=== PATIENT | female | born 1930 | race Caucasian/White ===

== ENCOUNTER 2017-10-11 10:01 | Inpatient (IN) | payer OTHER ==
[~2017-10-11] VITALS: Ht 160 cm; Wt 68.0 kg
[~2017-10-11 10:01] MED LIST: ASPIR 8181 MG PO; AZITHROMYCIN 2250 MG PO; LEVOTHYROXIN0.075 MG PO; MAXZIDE-25 MG1 EACH PO; NORVASC5 MG PO; PERCOCET PO; TESSALON PERLE100 MG PO; TRAMADOL 50 MG50 MG PO; TRAZODONE HCL100 MG PO; ZOCOR20 MG PO
[2017-10-11 10:07] VITALS: BP 146/89
[2017-10-11 10:48] LABS: MCV 68.3 fL (80.0-100.0); WBC 8.4 thou/uL (4.0-11.0)
[2017-10-11 10:50] LABS: HEMATOCRIT 40.6 % (37.0-47.0); HEMOGLOBIN 13.1 gm/dL (12.0-15.0); MCHC 32.2 g/dL (28.0-37.0); NUCLEATED RBCS 0 /100WBC; PLATELET COUNT* 271 thou/uL (150-400); RBC 5.94 mil/uL (4.20-5.00); RDW-CV 18.2 % (10.5-14.5)
[2017-10-11 10:56] LABS: APTT 22.5 Seconds (25.0-31.3); INR 1.1; PROTIME 10.7 Seconds (9.20-11.50)
[2017-10-11 11:04] LABS: ALBUMIN 3.7 g/dL (3.4-5.0); POTASSIUM 4.5 mmol/L (3.5-5.1); TOTAL BILIRUBIN 1.1 mg/dL (<0.1-1.0); TOTAL PROTEIN 7.1 g/dL (6.4-8.2); TROPONIN-I LEVEL 0.14 ng/mL (<0.06)
[2017-10-11] MEDS ORDERED: LASIX 40 MG TAB40 M2 PO (11:07)
[2017-10-11 11:12] LABS: ABSOLUTE EOSINOPHILS 0.2 thou/uL (0.0-0.7); ABSOLUTE MONOCYTES 0.7 thou/uL (0.0-1.2); ABSOLUTE NEUTROPHILS 6.6 thou/uL (1.6-8.1)
[2017-10-11 11:13] LABS: HYPOCHROMASIA 2+; MICROCYTES 2+; OVALOCYTES 1+; POLYCHROMASIA 1+; SCHISTOCYTES Occasional; TARGET CELLS Occasional
[2017-10-11 11:14] LABS: ANISOCYTOSIS 2+; PLATELET ESTIMATE ADEQUATE; POIKILOCYTOSIS 2+
[2017-10-11 11:23] LABS: BE 1.5 mmol/L (-2 to +3); HCO3 24.2 mmol/L (22.0-26.0); PCO2 32.6 mmHg (35.0-45.0); PO2 99.5 mmHg (75.0-100.0); pH 7.489 (7.340-7.450)
[2017-10-11 13:30] VITALS: BP 123/80
[2017-10-11 13:38] VITALS: BP 126/72
[2017-10-11] MEDS ORDERED: NAMENDA 10 MG T10 MG PO (14:34)
[2017-10-11 16:46] VITALS: BP 121/75
--- NOTE | 2017-10-11 19:45 | 2DMMODE ---
[place] [address] 2 D/M-MODE ECHOCARDIOGRAM Name: WALLACE PANDEY Jesse Room: [address] IN [facility]#: [id number] Admission: 10/11/17 Attend Phys: Michael Harrison Discharge: Date of : 32 Date of Service: 10/11/17 1944 Report #: [id number] THIS REPORT FOR: //name// APPROVED REPORT Study performed: 10/11/2017 16:55:29 EXAM: Comprehensive 2D, Doppler, and color-flow Echocardiogram Patient Location: In-Patient Room #: 229 Status: routine BSA: 1.81 HR: 105 bpm BP: 126/72 mmHg Rhythm: NSR Other Information Study Quality: Good Indications Congestive Heart Failure Dyspnea 2D Dimensions LVEF(%): 32.97 (>50%) IVSd: 20.24 (7-11mm) LVOT Diam: 19.34 (18-24mm) LVDd: 35.44 mm PWd: 18.11 (7-11mm) Ascending Ao: 34.50 (22-36mm) LVDs: 30.05 (25-40mm) Aortic Root: 29.89 mm Trimble's LVEF: 32.97 % Volumes Left Atrial Volume (Systole) LA ESV Index: 44.70 mL/m2 Aortic Valve AoV Peak Olaf.: 1.23 m/s AO Peak Gr.: 6.10 mmHg LVOT Max P.71 mmHg AO Mean Gr.: 3.52 mmHg LVOT Mean P.22 mmHg LVOT Max V: 0.82 m/s AO V2 VTI: 19.18 cm LVOT Mean V: 0.50 m/s RICKY (VTI): 1.81 cm2 LVOT V1 VTI: 11.83 [place] [address] 2 D/M-MODE ECHOCARDIOGRAM Name: WALLACE PANDEY Jesse Room: [address] IN .R.#: [id number] Admission: 10/11/17 Attend Phys: Michael Harrison Discharge: Date of : 32 Date of Service: 10/11/17 1944 Report #: [id number] Medial E' Olaf.: 0.05 m/s Lateral E' Olaf.: 0.06 m/s Pulmonary Valve PV Peak Olaf.: 0.89 m/s PV Peak Gr.: 3.16 mmHg Tricuspid Valve TR Peak Gr.: 39.67 mmHg RVSP: 44.00 mmHg Left Ventricle The left ventricle is normal size. There is normal LV segmental wall motion. Severe concentric left ventricular hypertrophy. Left ventricular systolic function is moderately decreased. LVEF is 35-40%. Transmitral Doppler flow pattern suggests restrictive physiology. Right Ventricle Right ventricle is mildly dilated. The right ventricular systolic function is normal. Atria Left atrium is moderately dilated. Right atrium is mildly dilated. Aortic Valve Mild aortic valve sclerosis. Mild aortic regurgitation. No hemodynamically significant valvular aortic stenosis. Mitral Valve There is mitral annular calcification. Moderate mitral regurgitation. No evidence of mitral valve stenosis. Tricuspid Valve The tricuspid valve is normal in structure. Moderate tricuspid regurgitation. The RVSP is 50-55 mmHg. Pulmonic Valve The pulmonary valve is normal in structure. Mild pulmonic regurgitation. Great Vessels The aortic root is normal in size. IVC is normal in size and collapses with >50% inspiration Pericardium Mild circumferential pericardial effusion. [place] [address] 2 D/M-MODE ECHOCARDIOGRAM Name: NATHAN PANDEYSHIN Molina Room: [address] IN .R.#: [id number] Admission: 10/11/17 Attend Phys: Michael Harrison Discharge: Date of : 32 Date of Service: 10/11/17 1944 Report #: [id number] pericardial tamponade. Left pleural effusion. <Conclusion> The left ventricle is normal size. Severe concentric left ventricular hypertrophy. Left ventricular systolic function is moderately decreased. LVEF is 35-40%. Transmitral Doppler flow pattern suggests restrictive physiology. Mild aortic valve sclerosis. Mild aortic regurgitation. The left ventricle is normal size. Severe concentric left ventricular hypertrophy. Left ventricular systolic function is moderately decreased. LVEF is 35-40%. Transmitral Doppler flow pattern suggests restrictive physiology. Left atrium is moderately dilated. Right atrium is mildly dilated. Right ventricle is mildly dilated. Mild aortic regurgitation. Moderate mitral regurgitation. Moderate tricuspid regurgitation. The RVSP is 50-55 mmHg. Mild pulmonic regurgitation. Mild circumferential pericardial effusion. No echo indications of pericardial tamponade. Consider infiltrative cardiomyopathy. <ELECTRONICALLY SIGNED> By: Tim Sy MD, FACC 10/11/171944 44 44 Tim Sy MD, FACC /INF
[2017-10-11 20:00] VITALS: BP 112/65
--- NOTE | 2017-10-11 20:19 | EKG ---
[place] [address] ELECTROCARDIOGRAM REPORT Name: LULÚNAHUMWALLACE K Room: [address] ADM IN .R.#: [id number] Admission: 10/11/17 Attend Phys: Michael Ferguson, Discharge: Date of : 32 Report #: [id number] THIS REPORT FOR: //name// [facility] ED Test Date: 2017-10-11 Test Time: 10:11:31 Pat Name: WALLACE PANDEY Department: Room: [facility] Gender: F Teaching Dietitian: CARLA : 1930 Requested By: Kendall Dubois Order Number: [id number] MD: Tim Sy Measurements Intervals Independence Rate: 104 P: 57 NC: 199 QRS: 21 QRSD: 101 T: -43 QT: 346 QTc: 455 Interpretive Statements Sinus tachycardia Low voltage, extremity leads Anteroseptal infarct, old Compared to ECG 10/27/2016 15:15:09 Low QRS voltage now present Sinus rhythm no longer present Prolonged QT interval no longer present Myocardial infarct finding still present Electronically Signed On 10-11-2017 20:19:37 CATALOGUE ILLUSTRATOR by Tim Sy [email or web address] <ELECTRONICALLY SIGNED> By: Tim Sy MD, FACC 10/11/172018 1011 1011 Tmi Sy MD, FAC /EPI
[2017-10-12] VITALS: BP 133/73
[2017-10-12 04:00] VITALS: BP 132/70
[2017-10-12 05:44] LABS: HEMATOCRIT 38.1 % (37.0-47.0); HEMOGLOBIN 12.2 gm/dL (12.0-15.0); MCH 21.7 pg (26.0-34.0); MCV 67.7 fL (80.0-100.0); MPV 8.8 fl. (7.2-11.1); RBC 5.63 mil/uL (4.20-5.00); WBC 5.4 thou/uL (4.0-11.0)
[2017-10-12 06:03] LABS: ALBUMIN 3.2 g/dL (3.4-5.0); CALCIUM 8.7 mg/dL (8.5-10.1); CREATININE 1.1 mg/dL (0.6-1.3); MAGNESIUM 1.8 mg/dL (1.8-2.4); TOTAL BILIRUBIN 0.9 mg/dL (<0.1-1.0); TOTAL PROTEIN 6.1 g/dL (6.4-8.2); TROPONIN-I LEVEL 0.16 ng/mL (<0.06)
[2017-10-12 06:06] LABS: POTASSIUM 2.9 mmol/L (3.5-5.1)
[2017-10-12 08:00] VITALS: BP 116/69
[2017-10-12 11:41] VITALS: BP 121/70
--- NOTE | 2017-10-12 12:16 | CON ---
[address] [address] CONSULTATION Name: KATHERINWALLACE K Room: [address] IN .R.#: [id number] Admission: 10/11/17 Attend Phys: Michael Ferguson, Discharge: Date of : 31 Report #: [id number] THIS REPORT FOR: //name// CC: Dr. Megan Guzman DATE OF SERVICE: 10/11/2017 INDICATION: Heart failure. HISTORY OF PRESENT ILLNESS: The patient is a very pleasant 87-year-old white female who was admitted to the hospital with increasing swelling and shortness of breath. She is accompanied by her who fills in most of the history. The patient is not having chest pain. She has been having progressive dyspnea and orthopnea over the last month, swelling over the last 2 months. On admission to the hospital, she was felt to be in heart failure and placed in the hospital for further evaluation and treatment. An echocardiogram has been ordered and is pending. Her chest x-ray shows evidence of pulmonary vascular congestion. Her BNP was 10,019. Troponins were elevated at 0.14, but appeared to be chronically elevated. She is not having any symptoms to suggest acute coronary syndrome. PAST MEDICAL HISTORY: 1. Hypertension. 2. Hyperlipidemia. 3. Dementia. PAST SURGICAL HISTORY: T and A, hysterectomy. FAMILY HISTORY: Noncontributory. SOCIAL HISTORY: The patient has been over 60 years. Her is with her today. She does not smoke. She does not drink. Lifelong nonsmoker and nondrinker. ALLERGIES: None. HOME MEDICATIONS: Amlodipine 5 mg daily, furosemide 40 mg daily, levothyroxine 0.075 mg daily, simvastatin 20 mg at bedtime, trazodone 100 mg daily. REVIEW OF SYSTEMS: A 14-point review of systems was positive for dyspnea and orthopnea, lower extremity edema, hypothyroidism, arthritis of the arm and shoulder. She wears glasses without acute visual changes and she has decreased hearing. Otherwise, 14-point review of [place] [address] CONSULTATION Name: WALLACE PANDEY Room: [address]#: [id number] Admission: 10/11/17 Attend Phys: Michael Ferguson, Discharge: Date of : 31 Report #: [id number] PHYSICAL EXAMINATION: GENERAL: This is a very pleasant elderly female, who is in no distress. Mood and affect appropriate. HEENT: The patient is wearing a hearing aid and glasses. Extraocular muscles appear to be intact. Mucous membranes are moist. NECK: Shows no jugular venous distention. I do not appreciate bruit. CHEST: Reveals diminished breath sounds in the bases without rales. CARDIAC: Reveals a regular rhythm without gallop or murmur. ABDOMEN: Reveals normal bowel sounds. The abdomen is soft, nontender. EXTREMITIES: Shows 1+ pedal and ankle edema bilaterally. IMPRESSION AND RECOMMENDATIONS: 1. Acute on chronic diastolic heart failure. An echocardiogram has been ordered and is pending. At this time, she is responding nicely to a single bolus of IV Lasix. Would continue IV Lasix while in hospital and she has recently started furosemide at home, in fact may not have had a dose yet. I believe she will require only a small dose of Lasix at home. Follow I's and O's and daily labs. Consider outpatient stress testing. 2. Hypertension. Blood pressure adequately controlled especially with recent diuresis. We will follow clinically. 3. Hyperlipidemia. Continue simvastatin at current dose. <ELECTRONICALLY SIGNED> By: Tim Sy MD, FACC 10/12/17 1216 1816 [id number] Sy MD, FACC /nt
[2017-10-12 15:23] VITALS: BP 136/61
[2017-10-12 20:30] VITALS: BP 109/62
[2017-10-13] VITALS (7 sets, daily range): BP systolic 111–126; BP diastolic 66–82
[2017-10-13 05:57] LABS: HEMATOCRIT 37.9 % (37.0-47.0); MCH 21.5 pg (26.0-34.0); MCHC 31.6 g/dL (28.0-37.0); MCV 68.1 fL (80.0-100.0); MPV 8.9 fl. (7.2-11.1); RBC 5.57 mil/uL (4.20-5.00); RDW-CV 18.6 % (10.5-14.5); WBC 10.9 thou/uL (4.0-11.0)
[2017-10-13 06:14] LABS: CALCIUM 8.3 mg/dL (8.5-10.1); CREATININE 1.1 mg/dL (0.6-1.3); MAGNESIUM 2.1 mg/dL (1.8-2.4); POTASSIUM 3.3 mmol/L (3.5-5.1); TROPONIN-I LEVEL 0.21 ng/mL (<0.06)
[2017-10-14 04:00] VITALS: BP 122/67
[2017-10-14 05:30] LABS: CALCIUM 8.3 mg/dL (8.5-10.1); CREATININE 1.3 mg/dL (0.6-1.3); POTASSIUM 3.4 mmol/L (3.5-5.1)
[2017-10-14 08:00] VITALS: BP 122/69
[2017-10-14 12:13] VITALS: BP 106/58
[2017-10-14 14:45] LABS: BF RBC 1077 /mm3; TOTAL CELL COUNT 223 /mm3
[2017-10-14 14:48] LABS: CLARITY SL HAZY; COLOR YELLOW; TOTAL VOLUME 1210 ml
[2017-10-14 14:50] LABS: BF LYMPHOCYTES 18 %; BF MONOCYTES 5 %; BF POLYS 77 %; BF TISSUE 26 /100 WBC
[2017-10-14 14:52] LABS: SOURCE THORACENTESIS
[2017-10-14 17:22] VITALS: BP 117/70
[2017-10-14 20:20] VITALS: BP 109/54
[2017-10-15 01:08] VITALS: BP 111/68
[2017-10-15 04:51] VITALS: BP 114/66
[2017-10-15 05:24] LABS: HEMATOCRIT 39.3 % (37.0-47.0); HEMOGLOBIN 12.5 gm/dL (12.0-15.0); MCH 21.7 pg (26.0-34.0); MCHC 31.9 g/dL (28.0-37.0); MCV 68.1 fL (80.0-100.0); MPV 8.7 fl. (7.2-11.1); RBC 5.77 mil/uL (4.20-5.00); WBC 7.6 thou/uL (4.0-11.0)
[2017-10-15 06:03] LABS: CREATININE 1.2 mg/dL (0.6-1.3); MAGNESIUM 1.9 mg/dL (1.8-2.4); TOTAL PROTEIN 5.4 g/dL (6.4-8.2)
[2017-10-15 07:30] VITALS: BP 130/75
[2017-10-15 12:05] LABS: BODY FLUID PH 7.8 (Not Estab.)
[2017-10-15 12:15] VITALS: BP 107/57
--- NOTE | 2017-10-15 15:42 | CNG ---
[address] [address] CYTO-NONGYN REPORT PROCEDURE Name: LULÚNAHUMNATHANWALLACE Jesse Room: [address] IN .R.#: [id number] Admission: 10/11/17 Date of : 32 Discharge: Report #: [id number] Path Case #: [id number] CYTOPATHOLOGY REPORT COLLECTION DATE: 10/14/2017 RECEIVED DATE: 10/14/2017 SUBMITTING PHYS: Dr. Danielito Reyna OTHER PHYS: MD Dr. Tim Meza CLINICAL HISTORY: Shortness of breath, dyspnea, CHF exacerbation, dementia, right pleural effusion SPECIMEN(S) RECEIVED: A.Pleural fluid, Right * * * * * * * * * * * * FINAL DIAGNOSIS: A. Pleural fluid, Right: - No malignant cells identified. - Mesothelial cells and few acute and chronic inflammatory cells present. PATHOLOGIST: Vel Wilkerson M.D. REPORT ELECTRONICALLY SIGNED BY: Vel Wilkerson M.D. DATE/TIME: 10/15/2017 15:42 * * * * * * * * * * * * GROSS PATHOLOGY: A. Pleural fluid, Right: The specimen is submitted fixed, labeled "Wallace Tinoco". Received by the Cytology Department is 79 mL of cloudy yellow fluid. One ThinPrep slide and an alcohol fixed cell block were prepared. (lg2.) GRAPPLE YARDER OPERATOR(S): DINA Sigala(ASCP) INITIAL CPT CODE(S): A; 18162, 45240 Professional services performed by [facility] at [facility] [address] [place] [address] Technical services performed by [facility] at [address] [place] [address]., [address], [place] [address]. [facility] [address] [place] [address], [address] [address] CYTO-NONGYN REPORT PROCEDURE Name: WALLACE TINOCO Room: [address] ADM IN .R.#: [id number] Admission: 10/11/17 Date of : 31 Discharge: Report #: [id number] Path Case #: [id number] [place] [address] PHONE: [phone] DIRECTOR: Alex Hamilton M.D. * * * END OF REPORT * * *
[2017-10-15 16:18] VITALS: BP 123/78
[2017-10-15 20:00] VITALS: BP 117/75
[2017-10-16] VITALS: BP 118/79
[2017-10-16 04:00] VITALS: BP 115/66
[2017-10-16 05:11] LABS: HEMATOCRIT 41.3 % (37.0-47.0); HEMOGLOBIN 13.3 gm/dL (12.0-15.0); MCH 21.9 pg (26.0-34.0); MCHC 32.1 g/dL (28.0-37.0); MPV 8.8 fl. (7.2-11.1); RBC 6.08 mil/uL (4.20-5.00); RDW-CV 18.6 % (10.5-14.5); WBC 8.7 thou/uL (4.0-11.0)
[2017-10-16 06:09] LABS: ALBUMIN 3.2 g/dL (3.4-5.0); CALCIUM 8.4 mg/dL (8.5-10.1); CREATININE 1.3 mg/dL (0.6-1.3); TOTAL PROTEIN 5.6 g/dL (6.4-8.2)
[2017-10-16 06:11] LABS: POTASSIUM 4.2 mmol/L (3.5-5.1)
[2017-10-16 07:30] VITALS: BP 132/77
[2017-10-16 09:10] LABS: BODY FLUID AMYLASE 19 U/L (()); BODY FLUID LDH 82 IU/L (()); BODY FLUID PROTEIN 1.7 g/dL (())
--- NOTE | 2017-10-16 10:45 | CON ---
[address] [address] CONSULTATION Name: WALLACE PANDEY Room: [address] IN ..#: [id number] Admission: 10/11/17 Attend Phys: Michael Ferguson, Discharge: Date of : 31 Report #: [id number] THIS REPORT FOR: //name// [facility] DATE OF SERVICE: 10/15/2017 PULMONARY CONSULTATION ATTENDING PHYSICIAN: Adenike Mcgarry MD The patient is located in room 229. REASON FOR CONSULTATION: She has a right pleural effusion and congestive heart failure. HISTORY OF PRESENT ILLNESS: The patient is a very pleasant 87-year-old female, nonsmoker with some congestive heart failure. She has dyspnea. She had 1200 mL tapped off of her right chest just earlier today. Chemistries are still pending. She feels better. She is demented and pleasantly so. Denies any aspiration, lifelong nonsmoker and no history of prior pleural effusions. She denies any peripheral edema. OTHER MEDICAL PROBLEMS: Include dementia, dizziness, dyspnea, elevated troponin and rib contusion, previous sinusitis. ALLERGIES: She has no known drug allergies. OUTPATIENT MEDICATIONS: Includes furosemide 40 mg daily, amlodipine 5 mg daily, trazodone 100 mg daily, levothyroxine 0.075 mcg daily, memantine 10 mg, Namenda 10 mg daily. She has been off her simvastatin 20 mg daily, Maxzide 25 mg daily, and aspirin 81 mg daily. PAST SURGICAL AND MEDICAL HISTORY: Includes hysterectomy, T and A, hyperlipidemia, and hypothyroidism. FAMILY HISTORY: Noncontributory. SOCIAL HISTORY: She is a nonsmoker, nondrinker. I am not sure where she resides. REVIEW OF SYSTEMS: A 14-point review of systems was reviewed and negative. Her short-term memory [place] [address] CONSULTATION Name: WALLACE PANDEY Room: [address]#: [id number] Admission: 10/11/17 Attend Phys: Michael Ferguson, Discharge: Date of : 31 Report #: [id number] PHYSICAL EXAMINATION: GENERAL: Pleasant, somewhat demented 87-year-old female in no acute distress. VITAL SIGNS: Blood pressure is 110/56, heart rate is 84, respirations 16, temperature is 36.7 degrees. She is 5 feet 3 inches tall, weight 73 kilograms or 160 pounds, BMI is 28. HEENT: Unremarkable. Nares and pharynx are clear. NECK: Supple, without nodes. She has some moderate kyphosis. CHEST: Shows few rhonchi in the right lung base. Left chest is clear. CARDIOVASCULAR: Regular rate and rhythm without murmur, gallop or rub. Heart rate is 84. ABDOMEN: Soft, without masses or megaly. EXTREMITIES: Trace edema, no cyanosis or clubbing. NEUROLOGIC: She has poor short term memory, but other than that is intact. LABORATORY DATA: Hemoglobin is 12, white count 7600, normal differential, platelets are 198,000. Sodium is 142, potassium is 3.0 being repleted, bicarbonate is 34, BUN is 42, creatinine is 1.2, GFR is 43, glucose is 137, total bilirubin is 1.0, and magnesium is 1.9. LFTs slightly elevated. Awaiting the cytology on the chest x-ray and the chemistries. Most likely transudative effusion either from congestive heart failure or from hypothyroidism. ABGs on 4 liters from 3 days ago shows a pO2 of 99, pH 7.48, pCO2 is 36, bicarbonate is 24 with a sat of 96%. We will see how it goes in the meantime and hopefully not have to be very aggressive in this lady. Thanks again for allowing us to participate in this lady's care. <ELECTRONICALLY SIGNED> By: Gonzalo Alba MD 10/16/17 1045 1431 Rhea Jimenez MD /nt
[2017-10-16 11:52] VITALS: BP 114/57
[2017-10-16 12:05] VITALS: BP 114/57
[2017-10-16] MEDS ORDERED: COZAAR 25 MG TA25 M1 PO (14:41)
[2017-10-16] MEDS ORDERED: CARVEDILOL12.5 MG PO (14:41)
[2017-10-16 15:06] VITALS: BP 114/57
[2017-10-17 10:05] LABS: SOURCE THORACENTESIS
[2017-10-18 11:43] LABS: SOURCE THORACENTESIS
== END 2017-10-16 16:10 | DRG 291 ==
LOC: M.ERS 10:01 → M.TBA-ER 11:38 → M.2W 11:38
PROVIDERS: Family Medicine; Internal Medicine; Internal Medicine Cardiovascular Disease; ADMIT Family Medicine
PROC: 0W993ZZ Drainage of Right Pleural Cavity, Percutaneous Approach (ICD-10-PCS; principal; 2017-10-14)
DX: I50.23 Acute on chronic systolic (congestive) heart failure (principal); J96.01 Acute respiratory failure with hypoxia; J90 Pleural effusion, not elsewhere classified; I11.0 Hypertensive heart disease with heart failure; E78.5 Hyperlipidemia, unspecified; F03.90 Unspecified dementia, unspecified severity, without behavioral disturbance, psychotic disturbance, mood disturbance, and anxiety; E78.00 Pure hypercholesterolemia, unspecified; E03.9 Hypothyroidism, unspecified; E87.6 Hypokalemia; Z90.710 Acquired absence of both cervix and uterus; Z79.899 Other long term (current) drug therapy; Z84.89 Family history of other specified conditions

== ENCOUNTER 2017-10-22 16:58 | Inpatient (IN) | payer OTHER ==
[~2017-10-22] VITALS: Ht 160 cm; Wt 64.1 kg
[~2017-10-22 16:58] MED LIST changes: +CARVEDILOL12.5 MG PO; +COZAAR 25 MG TA25 M1 PO; +LASIX 40 MG TAB40 M2 PO; +NAMENDA 10 MG T10 MG PO
[2017-10-22 17:09] VITALS: BP 133/78
[2017-10-22] MEDS ORDERED: POTASSIUM20 PO (17:21)
[2017-10-22 17:38] LABS: HEMATOCRIT 41.1 % (37.0-47.0); HEMOGLOBIN 12.9 gm/dL (12.0-15.0); MCH 21.6 pg (26.0-34.0); MCHC 31.5 g/dL (28.0-37.0); MCV 68.6 fL (80.0-100.0); NUCLEATED RBCS 0 /100WBC; PLATELET COUNT* 198 thou/uL (150-400); RBC 5.99 mil/uL (4.20-5.00); RDW-CV 17.8 % (10.5-14.5); WBC 15.7 thou/uL (4.0-11.0)
[2017-10-22 17:46] LABS: CALCIUM 8.6 mg/dL (8.5-10.1); CREATININE 1.1 mg/dL (0.6-1.3); POTASSIUM 3.7 mmol/L (3.5-5.1)
[2017-10-22 17:51] LABS: APTT 22.7 Seconds (25.0-31.3); INR 1.1; PROTIME 10.4 Seconds (9.20-11.50)
[2017-10-22 17:53] LABS: ALBUMIN 3.1 g/dL (3.4-5.0); TOTAL BILIRUBIN 1.2 mg/dL (<0.1-1.0); TOTAL PROTEIN 6.4 g/dL (6.4-8.2); TROPONIN-I LEVEL 0.21 ng/mL (<0.06)
[2017-10-22 17:57] LABS: INFLUENZA A ANTIGEN None Detected (None Detect); INFLUENZA B ANTIGEN None Detected (None Detect)
[2017-10-22 18:08] LABS: BE 7.9 mmol/L (-2 to +3); HCO3 32.1 mmol/L (22.0-26.0); PCO2 43.2 mmHg (35.0-45.0); PO2 108.5 mmHg (75.0-100.0); pH 7.489 (7.340-7.450)
[2017-10-22 18:11] LABS: ABSOLUTE BASOPHILS 0.2 thou/uL (0.0-0.2); ABSOLUTE EOSINOPHILS 0.5 thou/uL (0.0-0.7); ABSOLUTE LYMPHOCYTES 0.5 thou/uL (0.8-5.3); ABSOLUTE MONOCYTES 0.8 thou/uL (0.0-1.2); ABSOLUTE NEUTROPHILS 13.8 thou/uL (1.6-8.1)
[2017-10-22 18:12] LABS: OVALOCYTES 1+
[2017-10-22 18:13] LABS: PLATELET ESTIMATE ADEQUATE
[2017-10-22 18:14] LABS: ANISOCYTOSIS 1+; MICROCYTES 2+
[2017-10-22 18:15] LABS: HYPOCHROMASIA Occasional
[2017-10-22 21:30] VITALS: BP 128/68
[2017-10-23] VITALS (8 sets, daily range): BP systolic 89–118; BP diastolic 42–77
--- NOTE | 2017-10-23 02:59 | NUR ---
PT ARRIVED TO [facility] AT 2129 VIA CART. PT DROWSEY BUT AROUSABLE. ORIENTED TO SELF ONLY. BREATH SOUNDS COURSE WITH CRACKLES. O2 AT 4 LITERS NC. O2 SAT 95% MARTINEZ WITH 1350 CLEAR YELLOW EMPTIED AT 2229. LASIX 40MG GIVEN. PT WITH GOOD RESPONCE. 2229 TROPONIN CAME BACK AT 0.39 ELEVATED SINCE LAST TROP AT 0.21. DR BRAXTON NOTIFIED VIA YOU CALL MD. MSG RECIEVED. NO NEW ORDERS. CONSULTS FOR PULMONARY, ID AND CARDIOLOGY ORDERED AND CALLED INTO ANSWERING SERVICES. TELEMETRY SHOWS SR. WILL CONTINUE TO MONITOR.
[2017-10-23 05:24] LABS: ABSOLUTE LYMPHOCYTES 0.5 thou/uL (0.8-5.3); ABSOLUTE MONOCYTES 0.3 thou/uL (0.0-1.2); ABSOLUTE NEUTROPHILS 13.3 thou/uL (1.6-8.1); HEMOGLOBIN 12.1 gm/dL (12.0-15.0); LYMPHOCYTES 3.2 %; MCH 21.6 pg (26.0-34.0); MCHC 31.8 g/dL (28.0-37.0); MCV 67.9 fL (80.0-100.0); MONOCYTES 2.1 %; NUCLEATED RBCS 0 /100WBC; PLATELET COUNT* 163 thou/uL (150-400); POLYS 94.7 %; RDW-CV 18.1 % (10.5-14.5); WBC 14.1 thou/uL (4.0-11.0)
[2017-10-23 05:39] LABS: POTASSIUM 3.3 mmol/L (3.5-5.1)
--- NOTE | 2017-10-23 09:00 | NUR ---
VSS, ASSUMED CARE IN THE AM, ASSESSMENT PERFORMED AND CHARTED, FALL PRECAUTIONS IN PLACE AND CALL LIGHT IN REACH, PT IS CONFUSED AND ON 6L NC AND IS VERY WEAK, HAS A CONGESTED COUGH AND IS ON BEDREST, PT HAS MARTINEZ IN PLACE AND IS DRAINING, PT IS CONFUSED BUT NOT IMPULSIVE, PT GAOL IS TO IMPROVE BREATHING AND WORK WITH PT/OT/ST ON DAY OF CARE,
--- NOTE | 2017-10-23 10:22 | NUR ---
CM ASSESSMENT: Spoke with Pt's at bedside. Pt was recently discharged to [facility] skilled, readmitted yesterday for CHF, Hypoxia. Pt does not normally wear home o2. Prior to Pt's hospital stays, Pt resided at home with her . assisted with ADLs and iADLS, but Pt was able to ambulate short distances with her walker. Pt also has a wc at home. Hx of [facility] and [facility] skilled. states that he is Pt's primary source of support, and is ok with doing everything. wants to take Pt home with some HH, but understands that Pt may need skilled again. CM faxed referral to [facility], 2nd choice would be to return to [facility]. CM to ask nurse to order PT/OT evals. Following for dc needs.
--- NOTE | 2017-10-23 19:00 | NUR ---
PT IS PROGRESSING TOWARDS GOAL, PT WORKED WITH PT AND WAS UP TO BEDSIDE, PT WORKED WITH ST AND PASSED SWALLOW STUDY, PT IS A FEEDER, AND IS ON 6L NC AND IS TRACING SR ON THE MONITOR, PT IS IN BED WITH CALL LIGHT IN REACH, HOURLY ROUNDS COMPLETED, WILL FOLLOW WITH REPORT.
[2017-10-24 04:04] VITALS: BP 107/58
--- NOTE | 2017-10-24 04:13 | NUR ---
ASSUMED CARE OF PT AT 1900. PT IS VERY CONFUSED. VSS. CLAIRE. NO COMPLAINTS OF PAIN. LUNG SOUNDS ARE DIMINISHED IN THE LEFT LUNG AND CLEAR ON THE RIGHT SIDE. CHEST XRAY OBTAINED AND PT HAS A PLEURAL EFFUSION ON THE LEFT SIDE. PT IS IN SINUS RYTHM ON THE TELEMETRY. PT IS RESTING COMFORTABLY IN BED. RESPIRATIONS ARE EVEN AND NONLABORED. WILL CONTINUE TO MONITOR PT.
[2017-10-24 05:16] LABS: ABSOLUTE LYMPHOCYTES 0.2 thou/uL (0.8-5.3); ABSOLUTE MONOCYTES 0.4 thou/uL (0.0-1.2); ABSOLUTE NEUTROPHILS 11.9 thou/uL (1.6-8.1); BASOPHILS 0.1 %; HEMATOCRIT 36.5 % (37.0-47.0); HEMOGLOBIN 11.8 gm/dL (12.0-15.0); LYMPHOCYTES 1.4 %; MCH 21.9 pg (26.0-34.0); MCHC 32.4 g/dL (28.0-37.0); MCV 67.6 fL (80.0-100.0); MONOCYTES 3.3 %; MPV 9.6 fl. (7.2-11.1); NUCLEATED RBCS 0 /100WBC; PLATELET COUNT* 164 thou/uL (150-400); POLYS 95.2 %; RBC 5.39 mil/uL (4.20-5.00); RDW-CV 17.6 % (10.5-14.5); WBC 12.5 thou/uL (4.0-11.0)
[2017-10-24 05:24] LABS: ALBUMIN 2.3 g/dL (3.4-5.0); CALCIUM 8.3 mg/dL (8.5-10.1); CREATININE 1.2 mg/dL (0.6-1.3); TOTAL BILIRUBIN 0.8 mg/dL (<0.1-1.0); TOTAL PROTEIN 5.2 g/dL (6.4-8.2)
[2017-10-24 05:48] LABS: POTASSIUM 2.5 mmol/L (3.5-5.1)
--- NOTE | 2017-10-24 06:04 | NUR ---
PT CHANGED TO NPO. PT WAS ASPIRATING WHEN TAKING CRUSHED PILLS WITH APPLESAUCE
[2017-10-24 08:00] VITALS: BP 121/64
[2017-10-24 08:01] LABS: HEMATOCRIT 39.6 % (37.0-47.0); HEMOGLOBIN 12.6 gm/dL (12.0-15.0); MCH 21.6 pg (26.0-34.0); MCHC 31.8 g/dL (28.0-37.0); MPV 9.2 fl. (7.2-11.1); RBC 5.83 mil/uL (4.20-5.00); RDW-CV 17.9 % (10.5-14.5); WBC 14.5 thou/uL (4.0-11.0)
[2017-10-24 08:11] LABS: APTT 27.5 Seconds (25.0-31.3); INR 1.2; PROTIME 11.2 Seconds (9.20-11.50)
[2017-10-24 08:12] LABS: CALCIUM 8.5 mg/dL (8.5-10.1); CREATININE 1.3 mg/dL (0.6-1.3); POTASSIUM 3.2 mmol/L (3.5-5.1)
[2017-10-24 08:17] LABS: ALBUMIN 2.5 g/dL (3.4-5.0); TOTAL BILIRUBIN 0.9 mg/dL (<0.1-1.0); TOTAL PROTEIN 5.8 g/dL (6.4-8.2)
--- NOTE | 2017-10-24 11:32 | CON ---
[address] [address] CONSULTATION Name: KATHERINWALLACE K Room: [address] IN M.R.#: [id number] Admission: 10/22/17 Attend Phys: Jone Ansari MD Discharge: Date of : 31 Report #: [id number] THIS REPORT FOR: //name// CC: Jone Guzman DATE OF SERVICE: 10/23/2017 INFECTIOUS DISEASE CONSULTATION ATTENDING PHYSICIAN: Jone Ansari M.D. REASON FOR EVALUATION: Complicated pneumonitis with pleural effusion, apparently recurrent. HISTORY OF PRESENT ILLNESS: Chart reviewed, patient examined. This 87-year-old with known history of cardiomyopathy, history of congestive heart failure apparently has been readmitted with complaints of progressive weakness, has had worsening encephalopathy, was found to be hypoxemic. It is notable a chest x-ray showed bilateral interstitial opacities. ABGs, pH of 7.489. White count elevated at 15.7, proBNP of 13,734. She is quite anxious, appeared to be at least mildly encephalopathic. Has a fairly effective cough, but was not able to expectorate, empirically started on ceftriaxone, azithromycin and Zosyn. Blood cultures are sterile thus far from yesterday. Pleural fluid from the was sterile. Repeat pleural fluid cultures pending. ALLERGIES: None known. MEDICATIONS: Include azithromycin, ceftriaxone, , carvedilol, levothyroxine, pantoprazole, ipratropium and albuterol inhaler, Zosyn, furosemide, methylprednisolone, memantine, enoxaparin. PAST MEDICAL HISTORY: Hypertension, high cholesterol, hypothyroidism, has some dementia, previous orthopedic injuries, hysterectomy, tonsillectomy with adenoidectomy. SOCIAL HISTORY: Nonsmoker, no ethanol. FAMILY HISTORY: Noncontributory. REVIEW OF SYSTEMS: As above, denies significant GI-related complaints. PHYSICAL EXAMINATION: GENERAL: She is chronically ill appearing, moderately anxious, appears undernourished. VITAL SIGNS: Temperature 97.8, pulse 75, respirations 14, [place] [address] CONSULTATION Name: WALLACE PANDEY Room: [address]#: [id number] Admission: 10/22/17 Attend Phys: Jone Ansari MD Discharge: Date of : 31 Report #: [id number] 114/56. SKIN: Warm, dry, no rashes. HEENT: Otherwise, unremarkable. NECK: Supple. LUNGS: Scattered coarse breath sounds. HEART: soft systolic murmur. ABDOMEN: Soft, nontender, nondistended. There is no organomegaly. GENITOURINARY: Deferred. RECTAL: Deferred. LABORATORY DATA: Review of thoracentesis, removal of 860 mL of yellow, slightly red-tinged pleural fluid, right side. Troponin elevated at 0.53. Blood cultures sterile thus far. Electrolytes: Sodium 142, potassium 3.3, chloride 101, bicarbonate is 35, BUN and creatinine 24 and 1.0. CBC: White count of 14.1, H and H 12.1 and 38.0, platelets of 163, has lymphocytopenia. TSH elevated at 3.802. CT chest, PE protocol, no evidence of PE, cardiomegaly with bilateral ground-glass opacities, moderate bilateral pleural effusions. BNP elevated at 13,734. Lactic acid 1.1. Influenza antigen was negative. ASSESSMENT: Right-sided pneumonitis. The patient was actually hospitalized recently with same. It is difficult to know if she has ongoing issues with aspiration. Apparently, based on my visit, has a pretty vigorous cough, although she is unable to cough up much. We will continue combination therapy. I think dual beta lactamase could be narrowed down. We will give her some vancomycin in addition to Zosyn and the azithromycin. We will see we would get a sputum culture. Await blood cultures. Monitor expectantly. This is certainly a tenuous situation. <ELECTRONICALLY SIGNED> By: Yoel Lovett MD 10/24/17 1132 1608 0209Jochloe Lovett MD /nt
[2017-10-24 12:07] VITALS: BP 117/81
--- NOTE | 2017-10-24 12:35 | EKG ---
[place] [address] ELECTROCARDIOGRAM REPORT Name: WALLACE PANDEY Room: [address] ADM IN M.R.#: [id number] Admission: 10/22/17 Attend Phys: Jone Ansari MD Discharge: Date of : 31 Report #: [id number] THIS REPORT FOR: //name// [facility] ED Test Date: 2017-10-22 Test Time: 17:39:14 Pat Name: WALLACE PANDEY Department: Room: [facility] Gender: F Water Service Dispatcher: : 1930 Requested By: Ashia William Order Number: [id number] MD: Tim Sy Measurements Intervals [place] Rate: 88 P: 9 SC: 217 QRS: -59 QRSD: 130 T: 47 QT: 397 QTc: 481 Interpretive Statements Sinus rhythm Borderline prolonged SC interval Left bundle branch block Compared to ECG 10/11/2017 10:11:31 Left bundle-branch block now present Sinus tachycardia no longer present Myocardial infarct finding no longer present Electronically Signed On 10-24-2017 12:34:53 REHABILITATION CLERK by Tim Sy [email or web address] <ELECTRONICALLY SIGNED> By: Tim Sy MD, FACC 10/24/17 1234 1739 1739 Tim Sy MD, FAC /EPI
--- NOTE | 2017-10-24 14:31 | NUR ---
Pt's , he asked CM to contact Pt's mandaeism [facility] [employer] [phone] to inform them that she was in the hospital and they she is in need of prayer. also requested that the exhibit preparator come to visit, if he is able.
--- NOTE | 2017-10-24 14:50 | NUR ---
building coordinator: Met with patient and spouse at 11:45. Discussed episode this am regarding stroke like symptoms. Spouse awaiting MRI results. Wants to return home at some point with home health if possible. Provided emotional support will continue to follow.
--- NOTE | 2017-10-24 15:21 | CON ---
[address] [address] CONSULTATION Name: KATHERINWALLACE K Room: [address] IN M.R.#: [id number] Admission: 10/22/17 Attend Phys: Jone Ansari MD Discharge: Date of : 31 Report #: [id number] THIS REPORT FOR: //name// CC: Jone Guzman DATE OF SERVICE: 10/24/2017 HISTORY OF PRESENT ILLNESS: The patient is an 87-year-old female patient who was evaluated by me as a stroke protocol. I had numerous conversations with the patient's , Dr. Ansari and the nurses looking after this patient. This patient has an underlying dementia. She is able to recognize her most of the time, but does not recognize other people. She does not know months and years in the baseline. She was admitted and underwent thoracentesis yesterday. She also is being followed by Cardiology for congestive heart failure. This morning at 6:00, the nurses noticed that she had altered mental status. That is difficult to evaluate because this patient has dementia in the baseline and has been sent to care home unit with altered mental status and according to the , the patient has been confused for at least a few days. They also noticed weakness in the right upper extremity and right side of the face, but I have carried out examination multiple times, she has no facial weakness on the right side. The right arm is difficult to determine, but it looks like she can hold the arm to the count of 10. So if she had weakness, that has rapidly improved. Similarly, she can hold both legs, one at a time, but it is very difficult to tell whether she is somewhat weak on the right side as compared to the left side. I do not know what her NIH stroke scale was when she was admitted. REVIEW OF SYSTEMS: Very extensive in this patient. This patient has a history of pleural effusion and she underwent thoracentesis yesterday. She has a prior history of fracture. Her record indicate that she had a rib contusion and fracture, but I do not know and neither does the when was that diagnosed. She does not have a prior history of stroke and she did have significant electrolyte imbalances this morning including a very low potassium of 2.5, which has been corrected. She is on Lovenox for DVT prophylaxis. PAST MEDICAL HISTORY: Negative for stroke, but is positive for significant amount of dementia. FAMILY HISTORY: Negative for early age stroke. SOCIAL HISTORY: She is and [place] [address] CONSULTATION Name: WALLACE PANDEY Room: [address] IN [facility]#: [id number] Admission: 10/22/17 Attend Phys: Jone Ansari MD Discharge: Date of : 31 Report #: [id number] PHYSICAL EXAMINATION: I carried out the examination numerous times on this patient. My examination is pretty persistent. She is alert. She is disoriented. She does have intact speech. Her memory and fund of knowledge is extremely poor. Cranial nerve examination was carried out multiple times and she has no facial palsy or hemianopsia. She can raise the arm and keep it there for the count of 10 and it is very difficult to compare with the left side because left side she had injuries there in the shoulder. On the legs, she can hold the left leg for the count of 5, but she does appear to be having difficulty holding the right leg to the count of 5. I tried to do the sensory system examination, she could not understand and I do not think she has any marked cerebellar sign and she is not good enough to be able to do a good examination. Her vital signs are maintained as her last blood pressure is 107/58, respirations 16, pulse 83, temperature is 97.2. LABORATORY DATA: Her platelet count is 184 and her RBCs are 5.83. We did a CT scan of the head, which was mostly unremarkable. She is hyponatremic. IMPRESSION: This patient does appear to have finding consistent with an ischemic event. The nurses noticed it at 6:00 this morning. Timing is not accurate because the patient cannot provide any history and was not there, so it is very possible that she woke up with these symptoms. Further problem in that regard is that her GFR is only 39 and she had contrast for CT angio just a day before. Therefore, we are reluctant to give contrast again with a GFR of 39 and because this patient presently has a very low NIH score or neurological deficit. We debated a lot about this patient about giving this patient TPA or not. There is no clear cut path in this patient's situation. The problem is that nobody is completely certain that she did not wake up with at least some deficit. The deficit has rapidly improved and presently has only minor deficit. These patients used to be excluded from TPA, but these patients are given TPA if they are appropriate candidates now, but she is 87-year-old, she has a significant dementia and we need to make sure that she is within 3 hours window and we cannot do that because they cannot tell me that the patient did not wake up with some deficit. The patient had thoracentesis yesterday. Rules are not clear about thoracentesis, but typically it is not given after a spinal tap, etc., and I did the literature search and some protocols including the protocol exclude the patient with thoracentesis for 10 days. She is on Lovenox DVT prophylaxis dose. Lovenox is a contraindication for TPA, but DVT prophylaxis dose of Lovenox has not been fully evaluated. She does have some electrolyte imbalances and at least some of them will cause mental status changes. We debated a lot rather to give TPA in this patient or not. However, after considering all of it and after talking to the patient's family in great detail, it was a combined decision to hold the TPA because there is really no good choice in this patient. I discussed [place] [address] CONSULTATION Name: WALLACE PANDEY Room: [address] IN [facility].#: [id number] Admission: 10/22/17 Attend Phys: Jone Ansari MD Discharge: Date of : 31 Report #: [id number] very nice, but in the end, he also indicated that he will also favor not giving TPA and the patient is not competent to make decisions. The patient's understand that this patient can become worse and if they do, then time to give TPA has past, but in this patient, there are so many problems with the TPA and the decision becomes extremely difficult. I did order a stat MRI in this patient. We did not do CT angio because of very low GFR and the patient just has received the contrast and our inability to give the patient too much fluids because of her congestive heart failure. I did talk to the that if the stroke occur or more complications occur, if the patient wanted aggressive measures or conservative care, I think his feeling is that she would have wanted conservative care and if the stroke completes and that may be the best thing to do on her. The situation is very tenuous and does not matter what we do, her prognosis is not good and her baseline condition is also not very good. Thank you very much for this referral. We will check MRI and try to discuss with the again. this addendum is being admitted at the time of signing this note. Patient's MRI films were reviewed. It did demonstrate tiny strokes. I talked to the nurses again and the patient clinically is doing well. She did not have any further deficit. I will review the MRA but the main treatment will be antiplatelet therapy and making sure she is not embolizing from heart and we will defer that to cardiology since they are following this patient. more than 50 minutes of time was spent taking care of this patient today and majority of that time was spent counseling the patient and the <ELECTRONICALLY SIGNED> By: Lucas Riojas MD 10/24/17 1521 0904 1210Lucas Riojas MD /nt
--- NOTE | 2017-10-24 16:41 | 2DMMODE ---
[address] [place] [address] 2 D/M-MODE ECHOCARDIOGRAM Name: WALLACE PANDEY Room: [address] ADM IN R#: [id number] Admission: 10/22/17 Attend Phys: Jone Ansari, Discharge: Date of : 31 Date of Service: 10/24/17 1641 Report #: [id number] THIS REPORT FOR: //name// APPROVED REPORT Study performed: 10/24/2017 14:33:08 EXAM: Limited 2D Echocardiogram Patient Location: In-Patient Room #: 213 Status: routine BSA: 1.71 HR: 84 bpm BP: 117/81 mmHg Rhythm: NSR Other Information Study Quality: Good Indications Congestive Heart Failure CVA/TIA Left Ventricle The left ventricle is normal size. Severe concentric left ventricular hypertrophy. Left ventricular systolic function is moderately decreased. LVEF is 35-40%. Right Ventricle Right ventricle is mildly dilated. Atria Left atrium is moderately dilated. Interatrial septum is intact without evidence of ASD or PFO. Right atrium is mildly dilated. Aortic Valve Mild aortic valve sclerosis. Mitral Valve There is mitral annular calcification. Tricuspid Valve The tricuspid valve is normal in structure. Pulmonic Valve [address] [place] [address] 2 D/M-MODE ECHOCARDIOGRAM Name: WALLACE PANDEY Room: [address] ADM IN M.R.#: [id number] Admission: 10/22/17 Attend Phys: Jone Ansari, Discharge: Date of : 31 Date of Service: 10/24/171640 Report #: [id number] The pulmonary valve is normal in structure. Great Vessels The aortic root is normal in size. IVC is normal in size and collapses >50% with inspiration. Pericardium Trace pericardial effusion. Left pleural effusion. <Conclusion> The left ventricle is normal size. Severe concentric left ventricular hypertrophy. Left ventricular systolic function is moderately decreased. LVEF is 35-40%. Interatrial septum is intact without evidence of ASD or PFO. Right ventricle is mildly dilated. Left atrium is moderately dilated. Right atrium is mildly dilated. Mild aortic valve sclerosis. There is mitral annular calcification. Trace pericardial effusion. <ELECTRONICALLY SIGNED> By: Tim Sy MD, FACC 10/24/171640 40 40 Tim Sy MD, FACC /INF
--- NOTE | 2017-10-24 18:15 | NUR ---
ASSUMED CARE OF PT AT 0800. PT CONTINUES TO BE A&O X1 TO SELF. SHE HAS BEEN VERY TEARFUL TODAY AND CRYING OUT ALOT. SHE HAS BEEN SCORING A 2 ON NIH FOR THIS NURSE ON THIS SHIFT. NO C/O PAIN OR DISTRESS. PT WENT DOWN FOR A MRI THIS AM AND HAD A ECHO AT BEDSIDE THIS AFTERNOON. ST WAS CONSULTED TO DO A BEDSIDE SWALLOW STUDY D/T PT COUGHING WITH ORAL INTAKE FOR BOOKKEEPING CLERK AND WILL CONTINUE TO BE NPO UNTIL FURTHER EVALUATION CAN BE DONE. PT IS CURRENTLY RESTING IN BED WITH EYES CLOSED.
--- NOTE | 2017-10-24 18:40 | NUR ---
AT 0635, THE SPECIAL EVENTS COORDINATOR APPROACED ME AND SAID THAT MRS PANDEY WAS NOT ACTING LIKE HERSELF. UPON ENTERING HER ROOM SHE WAS FOUND TO BE TOTALLY UNRESPONSIVE AND ONLY ABLE TO MAKE UNCOMPREHENSABLE SOUNDS AT BEST. SHE WAS TOTALLY FLACCID ON HER RIGHT SIDE WITH NO REPONSE TO PAIN ON HER RIGHT SIDE. SHE WAS ABLE TO SQUEEZE MY FINGER WITH HER LEFT HAND. SHE WAS ALSO ABLE TO HOLD HER LEFT LEG AND ARM UP BUT ALSO HAD A DRIFT IN THOSE EXTREMITIES. PT HAD A SIGNIFICANT FACIAL DROOP ON HER LEFT SIDE OF HER FACE. PT'S NIH WAS SCORED AT A 29. CODE STROKE WAS INITIATED. PT WAS TAKEN DOWN FOR A CT OF HER HEAD. CBC, CMP, PT, AND PTT WAS DRAWN STAT. DR BRAXTON NOTIFIED. DR NICOLE WAS CONSULTED AND ARRIVED IN PTS ROOM AT ABOUT 0710. BY THAT TIME PT WAS AWAKE AND ABLE TO TALK. AND MOVE THE EXTREMITIES ON HER RIGHT SIDE. FACIAL DROOP WAS STILL OBSERVABLE. AT 0730, REPORT WAS GIVEN TO THE NEXT NURSE.
[2017-10-24 19:40] VITALS: BP 114/57
[2017-10-25 00:17] VITALS: BP 90/60
[2017-10-25 00:40] VITALS: BP 122/73
--- NOTE | 2017-10-25 03:28 | NUR ---
ASSUMED CARE OF PT AT 1900. PT IS CONFUSED. VSS. PERPaolaLA. NO COMPLAINTS OF PAIN. NIH IS 4. PT IS IN SINUS RYTHM ON THE TELEMETRY. PT IS RESTING COMFORTABLY IN BED. RESPIRATIONS ARE EVEN AND NONLABORED. WILL CONTINUE TO MONITOR PT.
[2017-10-25 05:36] LABS: ABSOLUTE LYMPHOCYTES 0.3 thou/uL (0.8-5.3); ABSOLUTE MONOCYTES 0.5 thou/uL (0.0-1.2); ABSOLUTE NEUTROPHILS 11.7 thou/uL (1.6-8.1); BASOPHILS 0.2 %; HEMATOCRIT 38.5 % (37.0-47.0); HEMOGLOBIN 12.3 gm/dL (12.0-15.0); LYMPHOCYTES 2.2 %; MCH 21.6 pg (26.0-34.0); MCV 67.6 fL (80.0-100.0); MPV 9.6 fl. (7.2-11.1); NUCLEATED RBCS 0 /100WBC; PLATELET COUNT* 187 thou/uL (150-400); POLYS 93.6 %; RBC 5.69 mil/uL (4.20-5.00); RDW-CV 17.7 % (10.5-14.5); WBC 12.4 thou/uL (4.0-11.0)
[2017-10-25 05:56] LABS: PREALBUMIN 13.8 mg/dL (18.0-35.7)
[2017-10-25 06:08] LABS: CHOLESTEROL 206 mg/dL (<200); HDL CHOLESTEROL 51 mg/dL (>40); LDL CHOLESTEROL 127 mg/dL (<100); SERUM ASSESSMENT Clear; TRIGLYCERIDE 141 mg/dL (<150); VLDL 28 mg/dL (<40)
[2017-10-25 06:11] LABS: ALBUMIN 2.6 g/dL (3.4-5.0); CALCIUM 8.2 mg/dL (8.5-10.1); CREATININE 1.4 mg/dL (0.6-1.3); MAGNESIUM 2.1 mg/dL (1.8-2.4); POTASSIUM 3.7 mmol/L (3.5-5.1); TOTAL BILIRUBIN 0.8 mg/dL (<0.1-1.0); TOTAL PROTEIN 5.8 g/dL (6.4-8.2)
[2017-10-25 07:06] LABS: GLYCOHEMOGLOBIN (HGB A1C) 5.7 % (4.8-5.6)
[2017-10-25 08:00] VITALS: BP 132/75
[2017-10-25 12:00] VITALS: BP 110/64
--- NOTE | 2017-10-25 12:12 | CON ---
[address] [address] CONSULTATION Name: WALLACE PANDEY Room: [address] IN .R.#: [id number] Admission: 10/22/17 Attend Phys: Jone Ansari MD Discharge: Date of : 31 Report #: [id number] THIS REPORT FOR: //name// CC: Jone Guzman DATE OF SERVICE: 10/23/2017 REFERRING PHYSICIAN: Jone Ansari MD. CHIEF COMPLAINT: Dyspnea. HISTORY OF PRESENT ILLNESS: The patient is an 87-year-old female who was admitted to the hospital with increasing shortness of breath. She was found to have significant bilateral pleural effusions. She has a history of congestive heart failure, prior pleural effusion, had a thoracentesis about a week or so ago. She was sent to a senior care facility after her last hospitalization. She was not doing well, developed a cough, more shortness of breath. She was brought back to the hospital. PAST MEDICAL HISTORY: Significant for worsening mental status, hypoxemia, congestive heart failure, dementia. MEDICATIONS: Prior to admission include , potassium, trazodone, levothyroxine, Lasix, Namenda. PAST SURGICAL HISTORY: Hysterectomy, tonsillectomy. REVIEW OF SYSTEMS: System review negative other than what is outlined above. ALLERGIES: None known. FAMILY HISTORY: Noncontributory. SOCIAL HISTORY: She is a nonsmoker. PHYSICAL EXAMINATION: VITAL SIGNS: Blood pressure 93/45, respiratory rate 20, pulse rate 69. Temperature 98 degrees. Her weight 150 pounds. GENERAL APPEARANCE: She is awake, alert. She answers appropriately. She is extremely weak. HEAD: Atraumatic. EYES: Pupils are round, equal, reactive. ORAL CAVITY: Moist. NECK: With a positive JVD. CHEST: Reveals dullness in the bases, [place] [address] CONSULTATION Name: WALLACE PANDEY Room: [address] IN [facility]#: [id number] Admission: 10/22/17 Attend Phys: Jone Ansari MD Discharge: Date of : 31 Report #: [id number] CARDIOVASCULAR: Regular rhythm. ABDOMEN: Obese without organomegaly, no tenderness. EXTREMITIES: 2-3+ edema bilaterally without calf tenderness. SKIN: Warm and dry. NEUROLOGIC: She is weak generally overall, no pathologic reflexes. LABORATORY DATA: A prior thoracentesis on 10/14/2017 revealed a protein of 1.7. Today, her electrolytes reveal sodium 142, potassium 3.3, chloride 101, CO2 of 35, BUN of 24, creatinine 1.0. EGFR 53. Her proBNP on admission was 13,734. Her TSH is slightly elevated at 3.8. Troponin has been chronically elevated. Hemoglobin and hematocrit of 12 and 38 with a white count of 14,000. Arterial blood gas on admission on 2 liters, pH 7.49, pCO2 of 43, pO2 of 108 and a bicarbonate of 32. Chest x-ray, bilateral effusions, congestive failure, cardiomegaly. ASSESSMENT: 1. Acute respiratory insufficiency/failure. 2. Chronic congestive heart failure. 3. Bilateral pleural effusions. 4. Slightly elevated TSH. 5. Coronary artery disease. RECOMMENDATION: Repeat thoracentesis. The patient does remain a full code. Continue aspiration precautions, DuoNeb aerosol treatments for the time being. No orders on the pleural fluid since they have recently been documented and performed. There was no evidence of malignancy in the cytology. <ELECTRONICALLY SIGNED> By: Zeke Brown MD 10/25/17 1212 1106 1710Aljeffery Alba MD /nt
[2017-10-25 16:00] VITALS: BP 121/62
--- NOTE | 2017-10-25 18:47 | NUR ---
ASSUMED CARE OF PT AT 0730. PT CONTINUES TO BE ALERT TO ONLY SELF BUT DOES ON OCCASION REMEBER STAFF NAMES. VSS AND SHE HAS DENIED ANY C/O PAIN. PT WENT FOR A VIDEO SWALLOW TODAY AND WAS PLACED ON A REGULAR DIET WITH THIN LIQUIDS. SHE WAS ABLE TO EAT DINNER WITH NO ISSUES AND ATE 75% OF THE MEAL. PT HAS HAD SOME PINK TINGED URINE TODAY BUT NO C/O PAIN AND NO FOUL ODOR. [facility] CALLED TO DR RAGLAND AT 1625 AND NEW DOSE ORDERED. PT HAS BEEN YELLING OUT TODAY CALLING FOR HER "DADDY" AND "MOMMA." PT CURRENTLY RESTING IN THE RECLINER AT BEDSIDE WATCHING TV. NURSING WILL CONTINUE TO MONITOR.
[2017-10-25 19:55] VITALS: BP 123/81
[2017-10-26 00:08] VITALS: BP 119/62
[2017-10-26 04:12] VITALS: BP 122/68
--- NOTE | 2017-10-26 04:30 | NUR ---
END SHIFT: PT IS DEMENTED, YELLS OUT, CRIES OUT. NIH 3. NO CHANGES. AIB WITH BBB ON MONITOR. REMAINS ON 2L NC. IVF INFUSING WITHOUT DIFFICUTLY. NO PAIN COMPLAINTS. MARTINEZ DRAINING ADEQUATE. HAS HAD A FEW BM'S OVER SHIFT WITH EACH ONE GETTING MORE LOOSE EACH TIME. ASSESSMENT UNCHANGED. SAFETY PRECAUTIONS IN PLACE. CALL LIGHT IN REACH. PERFORMED HOURLY ROUNDING. WILL CONT TO MONITOR.
[2017-10-26 04:46] LABS: HEMATOCRIT 36.8 % (37.0-47.0); HEMOGLOBIN 11.9 gm/dL (12.0-15.0); MCH 21.8 pg (26.0-34.0); MCHC 32.4 g/dL (28.0-37.0); MCV 67.3 fL (80.0-100.0); MPV 9.7 fl. (7.2-11.1); NUCLEATED RBCS 0 /100WBC; PLATELET COUNT* 167 thou/uL (150-400); RBC 5.47 mil/uL (4.20-5.00); RDW-CV 17.5 % (10.5-14.5); WBC 9.5 thou/uL (4.0-11.0)
[2017-10-26 05:55] LABS: ALBUMIN 2.7 g/dL (3.4-5.0); CALCIUM 8.5 mg/dL (8.5-10.1); CREATININE 1.4 mg/dL (0.6-1.3); POTASSIUM 3.6 mmol/L (3.5-5.1); TOTAL BILIRUBIN 0.8 mg/dL (<0.1-1.0); TOTAL PROTEIN 5.4 g/dL (6.4-8.2)
[2017-10-26 06:18] LABS: ABSOLUTE LYMPHOCYTES 0.3 thou/uL (0.8-5.3); ABSOLUTE MONOCYTES 0.1 thou/uL (0.0-1.2); ABSOLUTE NEUTROPHILS 9.1 thou/uL (1.6-8.1)
[2017-10-26 06:19] LABS: ANISOCYTOSIS 2+; HYPOCHROMASIA 3+; MICROCYTES 3+; OVALOCYTES 2+; PLATELET ESTIMATE ADEQUATE; POIKILOCYTOSIS 1+; TARGET CELLS 2+
[2017-10-26 08:10] VITALS: BP 128/79
[2017-10-26 12:25] VITALS: BP 69/51
--- NOTE | 2017-10-26 18:54 | NUR ---
ASSUMED CARE OF PT AT 0730. PT CONTINUES TO BE A&O X1 TO SELF AND DOES RECOGNIZE STAFF AND RECALL SOME STAFF NAMES. PT VSS AND DENIES ANY C/O PAIN OR DISTRESS. LUNGS ARE COARSE AND BREATHING IS SLIGHTLY LABORED WITH O2 SATS INB THE UPPER 90'S ON 3L VIA NC. PT HAS BEEN EATING AND DRINKING TODAY AND ATE ABOUT 50% OF EACH MEAL. PT HD TWO BOWEL MOVEMENTS TODAY THAT WERE SOFT UNFORMEDN BUT NOT WATERY. PT CURRENTLY RESTING IN BED WITH HOB ELEVATED TO 70 DEGREES. NURSING WILL CONTINUE TO MONITOR.
[2017-10-26 20:00] VITALS: BP 100/64
[2017-10-27] VITALS: BP 108/70
[2017-10-27 04:00] VITALS: BP 121/73
[2017-10-27 05:11] LABS: ABSOLUTE LYMPHOCYTES 0.3 thou/uL (0.8-5.3); ABSOLUTE MONOCYTES 0.2 thou/uL (0.0-1.2); ABSOLUTE NEUTROPHILS 6.9 thou/uL (1.6-8.1); BASOPHILS 0.2 %; HEMATOCRIT 36.8 % (37.0-47.0); HEMOGLOBIN 12.1 gm/dL (12.0-15.0); LYMPHOCYTES 4.2 %; MCHC 32.9 g/dL (28.0-37.0); MONOCYTES 2.3 %; MPV 9.1 fl. (7.2-11.1); NUCLEATED RBCS 0 /100WBC; PLATELET COUNT* 152 thou/uL (150-400); POLYS 93.3 %; RBC 5.49 mil/uL (4.20-5.00); WBC 7.4 thou/uL (4.0-11.0)
--- NOTE | 2017-10-27 05:47 | NUR ---
PATIENT PROGRESSING TOWARDS GOALS: PATIENT WAS ABLE TO SLEEP A MAJORITY OF THE SHIFT WITH NO C/O PAIN OR DISCOMFORT. PATIENT APPEARS TO BE IN NO DISTRESS AND REMAINED ON 3L O2 NC WITH SATS >92%. LUNG SOUNDS SLIGHTLY COARSE, PRIMARILY DIMINISHED. PATIENT INCONTINENT OF ONE VERY SMALL EPISODE OF LOOSE BOWEL. JAIMEE CARE PROVIDED WITH APPLICATION OF BARRIER CREAM. HOURLY ROUNDING OBSERVED. CALL LIGHT WITHIN REACH
[2017-10-27 06:13] LABS: ALBUMIN 2.6 g/dL (3.4-5.0); CREATININE 1.4 mg/dL (0.6-1.3); MAGNESIUM 1.9 mg/dL (1.8-2.4); POTASSIUM 3.3 mmol/L (3.5-5.1); TOTAL BILIRUBIN 0.7 mg/dL (<0.1-1.0); TOTAL PROTEIN 5.1 g/dL (6.4-8.2)
[2017-10-27 08:05] VITALS: BP 111/76
[2017-10-27 08:17] VITALS: BP 111/76
--- NOTE | 2017-10-27 11:50 | NUR ---
PT TELE MONITOR ALERTED TO LOW HR, THIS NURSE ENTERED THE ROOM TO FIND THE PT SEATED IN THE CHAIR WITH HER HEAD SLUMPED FORWARD, NOT BREATHING AND UNRESPONSIVE TO ANY TYPE OF STIMULI. CODE BLUE ACTIVATED AND PT TRANSFERED TO THE BED AND COMPRESSIONS STARTED. CODE TEAM ARRIVED AND MEDS GIVEN IN ATTEMPT TO RESUSCITATE PT. TOD PRONOUNCED AT 1123. [facility] CALLED AT 1145 AND SPOKE TO BETHANY, REF. # [phone]. PT CURRENTLY AT BEDSIDE.
== END 2017-10-27 11:23 | DRG 871 ==
LOC: M.ERS 16:58 → M.2W 17:35 → M.TBA-ER 17:35 → M.2W 21:23
PROVIDERS: Internal Medicine Critical Care Medicine; Physician Assistant; Psychiatry & Neurology Neuromuscular Medicine; ADMIT Internal Medicine
PROC: 0W993ZZ Drainage of Right Pleural Cavity, Percutaneous Approach (ICD-10-PCS; principal; 2017-10-23)
DX: A41.9 Sepsis, unspecified organism (principal); J69.0 Pneumonitis due to inhalation of food and vomit; G93.40 Encephalopathy, unspecified; J96.21 Acute and chronic respiratory failure with hypoxia; J90 Pleural effusion, not elsewhere classified; F03.90 Unspecified dementia, unspecified severity, without behavioral disturbance, psychotic disturbance, mood disturbance, and anxiety; I50.9 Heart failure, unspecified; I25.10 Atherosclerotic heart disease of native coronary artery without angina pectoris; E78.00 Pure hypercholesterolemia, unspecified; E03.9 Hypothyroidism, unspecified; I11.0 Hypertensive heart disease with heart failure; R29.810 Facial weakness; Z87.81 Personal history of (healed) traumatic fracture; Z90.710 Acquired absence of both cervix and uterus; Z90.49 Acquired absence of other specified parts of digestive tract; Z79.899 Other long term (current) drug therapy; Z87.891 Personal history of nicotine dependence